=== PATIENT | male | born 1995 | race Caucasian/White ===

== ENCOUNTER 2022-03-24 00:46 | Emergency (ER) | payer BC, SELFPAY ==
--- NOTE | ~2022-03-24 | XR_ITS ---
EXAMINATION: XR foot RT min 3V DATE: 03/24/2022 01:08 INDICATION: Inversion injury to the right foot with tenderness to palpation at the base of the fifth metatarsal TECHNIQUE: Dorsoplantar, two oblique and lateral views of the right foot were obtained. COMPARISON: None. FINDINGS: Nondisplaced intra-articular fracture at the lateral base of the fifth metatarsal. Alignment remains essentially anatomic. No other fractures identified. Joint spaces are normal. Soft tissue swelling at the dorsolateral aspect of the midfoot. IMPRESSION: 1. Nondisplaced intra-articular fracture at the base of the right fifth metatarsal. Reviewed, dictated and finalized at location A. IMPRESSION: 1. Nondisplaced intra-articular fracture at the base of the right fifth metatar nori.
[2022-03-24 00:48] VITALS: PULSE 105; RESP 16; TEMP 36.2; O2SAT 100
--- NOTE | 2022-03-24 01:21 | ED.LOWEXIN ---
HPI - Extremity Injury (Lower) General Chief Complaint: Extremity Injury, Lower Stated Complaint: right foot injury Time Seen by Provider: 03/24/22 00:54 Source: patient History of Present Illness HPI Narrative: Patient presents with right foot pain. Patient ports he was walking back to his car this evening when he stepped off a curb and rolled his ankle. He reports he heard a pop and had immediate pain that he came to the ER for evaluation. His pain is sharp, constant, worse with walking around, radiates up his leg. Denies falling down or striking his head focal numbness or weakness Related Data Allergies Allergy/AdvReac Type Severity Reaction Status Date / Time penicillin V AdvReac Hives Verified 03/24/22 00:47 Review of Systems Review of Systems: CONSTITUTIONAL: Denies fever, chills, or sweats. EYES: Denies visual changes, redness, or discharge. ENT: Denies rhinorrhea, congestion, sore throat, or otalgia. CARDIOVASCULAR: Denies chest pain, palpitations, or edema. RESPIRATORY: Denies cough or dyspnea. GASTROINTESTINAL: Denies abdominal pain, nausea, vomiting, or diarrhea. SKIN: Denies rash or itching. MUSCULOSKELETAL: Denies back pain,or myalgia. NEUROLOGIC: Denies headache, numbness, dizziness, or weakness. [facility] Past Medical History Medical History (Updated 03/24/22 @ 01:28 by Dionisio Cotton MD) Patient denies significant medical history Exam Narrative: GENERAL: Well-appearing, well-nourished, and in no acute distress. HEAD: Normocephalic, atraumatic. EYES: PERRLA and EOMI. ENT: Nares clear, no rhinorrhea or epistaxis. Mucous membranes moist. NECK: Supple. No masses. No JVD EXTREMITIES: Normal range of motion. Edema noted on the lateral aspect of the right foot overlying the proximal metatarsals with focal tenderness distal extremity with sensation intact to light touch cap refill less than 2 seconds SKIN: Warm, dry, no rash. NEURO: No focal deficits. Alert and oriented x3. PSYCH: Normal mood and affect. Course Reevaluation(s) Reevaluation #1: Results and plan reviewed with patient. Patient is comfortable outpatient plan. Date: 03/24/22 Time: 01:26 Vital Signs Vital signs: Vital Signs Temperature 36.2 C L 03/24/22 00:48 Pulse Rate 105 H 03/24/22 00:48 Respiratory Rate 16 03/24/22 00:48 Pulse Oximetry 100 03/24/22 00:48 Temperature 36.2 C L 03/24/22 00:48 Pulse Rate 105 H 03/24/22 00:48 Respiratory Rate 16 03/24/22 00:48 Pulse Oximetry 100 03/24/22 00:48 MDM - Extremity Injury (Lower) MDM Narrative Medical decision making narrative: H&P as above, vss, pt looks clinically well, exam tenderness on the proximal fifth metatarsal, imaging concerning for minimally displaced styloid fracture additional labs/img considered, symptomatic relief available as needed, on reevaluation pt continues to looks clinically well. Suspect isolated fracture, dns major neurovascular compromise open fracture intracranial hemorrhage. plan to tx/monitor as op w/ Ortho f/u findings/plan discussed with pt, pt agree/comfortable with plan, return precautions given Imaging Data My impression: Nondisplaced proximal fracture of the fifth metatarsal styloid Discharge Plan Discharge Clinical Impression: Foot fracture Qualifiers: Encounter type: initial encounter Fracture type: closed Laterality: right Qualified Code(s): S92.901A - Unspecified fracture of right foot, initial encounter for closed fracture Patient Disposition: Home, Self-Care Condition: Improved Instructions: Antibiotic Form, Foot Fracture in Adults (ED) Additional Instructions: Please return if your symptoms worsen or fail to improve. If you develop a fever, can not eat/drink anything or if you have any other concerns. Follow-up/Referrals: PHYSICIAN NOT ON STAFF,NONSTAFF [Primary Care Provider] - Malachi Holt MD [Physician] - (Proximal fifth metatarsal fracture) Stand Alone Forms: Work/School Release IP Time of D
== END 2022-03-24 01:45 | disposition home or self-care (01) ==
PROVIDERS: Emergency Provider Emergency Medicine
DX: S92.354A Nondisplaced fracture of fifth metatarsal bone, right foot, initial encounter for closed fracture (principal); X50.9XXA Other and unspecified overexertion or strenuous movements or postures, initial encounter
CPT/HCPCS: 73630; 99284